=== PATIENT | female | born 2000 | race Caucasian/White ===

== ENCOUNTER 2021-03-17 15:30 | Outpatient (CLI) | payer SELFPAY ==
[~2021-03-17] VITALS: Ht 154.9 cm; Wt 68.1 kg
[2021-03-17 16:08] VITALS: BP 130/81
[2021-03-17] MEDS ORDERED: FAMO20TA PO (16:35)
[2021-03-17] MEDS ORDERED: PRENTAB9 PO (16:35)
[2021-03-17 17:25] VITALS: BP 131/79
--- NOTE | 2021-03-17 20:02 | IPNPDOC ---
Text Note Date of Service The patient was seen on 03/17/21. NOTE 03/17/21 patient 19 yo LMP 06/06/20 EDC BY EARLY US 16.2 WEEKS EDC 03/13/21 AT 40.4 WEEKS COMPLAINT OF SROM CALLED AT O900 AM CAME FOR ASSESSMENT AT 1700 HOURS NO PAD NO EVIDENCE FLUID. RISK FACTORS LATE ENTRY FOR CARE NO EARLY DATING US PAST HISTORY 08/26/2018 37 WEEKS 4 DAYS FEMALE 7 LBS 2 OZ. EXAMINATION NO ACUTE DISTRESS CATEGORY 1 STRIP NO CONTRACTIONS MODERATE VARIABILITY BASELINE NORMAL. EXAMINATION VULVA DRY STERILE SPECULUM EXAMINATION VAGINA MUCORRHEA MODERATE SLIGHT BLOOD TINGED FROM MEMBRANE STRIPPING SLIDE MICROSCOPIC NEGATIVE YEAST NEGATIVE BV, NEGATIVE TRICHOMONAS . HAS LATERAL WALL COLLAPSE BILATERAL .VERTEX -3 STATION POSTERIOR SOFT CERVIX 2 CM TIGHT BULGING MEMBRANES ABOVE CERVIX. PLAN PATIENT BOOKED IOL 03/19/21 OFFERED TO IOL TONIGHT. PATIENT PREFERRED TO WAIT REVIEWED PRECAUTIONS IF SROM, IF BLEEDING IF SARAH Q4-6 MINUTES RETURN FOR TRIAGE EXPRESSED UNDERSTANDING PATIENT DISCHARGED UNDELIVERED . ORDERED COVID TESTING TODAY. VS,Fishbone, I+O VS, Fishbone, I+O Vital Signs Date Time Temp Pulse Resp B/P (MAP) Pulse Ox O2 Delivery O2 Flow Rate FiO2 03/17/21 17:25 103 16 131/79 (96) 03/17/21 16:08 97.6 Dipesh Inman MD Mar 17, 2021 20:00
== END 2021-03-17 19:04 | disposition home or self-care (01) ==
LOC: M LDO 15:30
PROVIDERS: ATTEND Obstetrics & Gynecology
DX: O26.853 Spotting complicating pregnancy, third trimester (principal); Z3A.40 40 weeks gestation of pregnancy
CPT/HCPCS: 59025; G0378; G0463; U0002

== ENCOUNTER 2021-03-18 15:36 | Inpatient (IN) | payer OTHER ==
[~2021-03-18] VITALS: Ht 154.9 cm; Wt 65.0 kg
[2021-03-18] VITALS (34 sets, daily range): BP systolic 101–152; BP diastolic 53–106
[2021-03-18] MEDS: IBUPROFEN 800 MG TAB PO SCH ×2 (00:20→08:20)
[~2021-03-18 15:36] MED LIST: FAMO20TA PO; PRENTAB9 PO
[2021-03-18] MEDS ORDERED: LACTATED RINGER'S 1000 ML IV STA (16:41)
[2021-03-18] MEDS ORDERED: OXYTOCIN DRIP 30 UNITS in IV 1 EA IV PRN (16:45)
[2021-03-18] MEDS ORDERED: LIDOCAINE 1% MDV 20ML VIAL INFIL PRN (16:45)
[2021-03-18] MEDS ORDERED: LR 1,000 ML IV SCH (16:45)
[2021-03-18 17:19] LABS: APPEARANCE, URINE HAZY (CLEAR); BACTERIA, URINE AUTO NEGATIVE (NEGATIVE); BILIRUBIN, URINE AUTO NEGATIVE (NEGATIVE); BLOOD, URINE BLOOD 1+ (NEGATIVE); COLOR, URINE YELLOW (YELLOW); GLUCOSE, URINE (UA) AUTO NEGATIVE (NEGATIVE); HEMATOCRIT 38.5 % (36.0-47.0); HEMOGLOBIN 12.9 g/dl (12.0-15.5); KETONE, URINE AUTO NEGATIVE (NEGATIVE); LEUKOCYTE ESTERASE, URINE AUTO 1+ (NEGATIVE); MEAN CORPUSCULAR HEMOGLOBIN 29.3 pg (27.0-33.0); MEAN CORPUSCULAR HGB CONC 33.5 g/dl (32.0-36.5); MEAN CORPUSCULAR VOLUME 87.5 fl (80.0-96.0); MUCUS, URINE SMALL (NEGATIVE); NITRITE, URINE AUTO NEGATIVE (NEGATIVE); PLATELET COUNT, AUTOMATED 281 10^3/uL (150-450); PROTEIN, URINE AUTO NEGATIVE (NEGATIVE); RBC, URINE AUTO 3 /HPF (0-3); SPECIFIC GRAVITY URINE AUTO 1.014 (1.002-1.035); SQUAMOUS EPITHELIAL CELL UR AU 8 /HPF (0-6); UROBILINOGEN, URINE AUTO 0.2 mg/dL (0.0-2.0); WBC, URINE AUTO 5 /HPF (0-3); WHITE BLOOD COUNT 15.4 10^3/uL (4.0-10.0)
[2021-03-18] MEDS ORDERED: FENTANYL 2MCG/ML ROPIVACAINE 0.2% IN 0.9% NACL 100ML IVBAG As Ordered ONE (17:38)
[2021-03-18 17:47] LABS: CREATININE,RANDOM URINE 87.3 MG/DL; TOTAL PROTEIN,RANDOM URINE 19.1 MG/DL (0.0-12.0)
[2021-03-18 17:48] LABS: ALT/SGPT 18 U/L (12-78); BILIRUBIN,TOTAL 0.5 MG/DL (0.2-1.0); CREATININE FOR GFR 0.47 MG/DL (0.55-1.30); GLOMERULAR FILTRATION RATE > 60.0 (>60); LDH LACTATE DEHYDROGENASE 325 U/L (84-246); URIC ACID 3.9 MG/DL (2.6-6.0)
[2021-03-18] MEDS ORDERED: ePHEDrine SULFATE 25 MG/5 ML(5MG/ML) SYRINGE As Ordered ONE (19:08)
[2021-03-18] MEDS ORDERED: EPIDURAL COMMENT XX SCH (19:50)
[2021-03-18] MEDS ORDERED: NALOXONE INJ 0.4MG/1ML VIAL (J2310 PER 1MG) IV PRN (19:50)
[2021-03-18] MEDS ORDERED: diphenhydrAMINE 50MG/ML VIAL (J1200) IV PRN (19:50)
[2021-03-18] MEDS ORDERED: REFRIGERATOR IV KEYS XX PRN (19:50)
[2021-03-18] MEDS ORDERED: LACTATED RINGER'S 1000 ML IV PRN (19:50)
[2021-03-18] MEDS ORDERED: FENTANYL/ROPIVACAINE/NACL BAG 100 ML EPIDURAL SCH (19:50)
[2021-03-18] MEDS ORDERED: ONDANSETRON 4MG/2ML VIAL IV PRN (19:50)
[2021-03-18] MEDS ORDERED: ePHEDrine SULFATE 25 MG/5 ML(5MG/ML) SYRINGE IV PRN (19:50)
[2021-03-18] MEDS ORDERED: EPIDURAL/PCA KEYS XX PRN (19:50)
[2021-03-19] VITALS (11 sets, daily range): BP systolic 108–204; BP diastolic 55–106
[2021-03-19 00:18] LABS: CORD GAS ABE V -1.7; CORD GAS HCO3 V 22.1 MEQ/L; CORD GAS O2 SAT V 77.8 %; CORD GAS PCO2 V 35.9 mmHg; CORD GAS PH V 7.408 UNITS; CORD GAS PO2 V 35.1 mmHg; CORD GAS SBC V 22.4 MEQ/L; CORD GAS TCO2 V 23.2 MEQ/L
[2021-03-19] MEDS ORDERED: METHYLERGONOVINE MALEATE 0.2 MG TAB PO PRN (00:20)
[2021-03-19] MEDS ORDERED: ONDANSETRON 4MG/2ML VIAL IV PRN (00:20)
[2021-03-19] MEDS ORDERED: DIBUCAINE 1% OINTMENT 30GM TOP PRN (00:20)
[2021-03-19] MEDS ORDERED: MEASLES,MUMPS,RUBELLA VACCINE INJ (MMR-II) (90707) SC SCH (00:20)
[2021-03-19] MEDS ORDERED: PROMETHAZINE 25 MG TAB PO PRN (00:20)
[2021-03-19] MEDS ORDERED: LR 1,000 ML IV SCH (00:20)
[2021-03-19] MEDS ORDERED: OXYTOCIN DRIP 30 UNITS in IV 1 EA IV SCH ×4 (00:20)
[2021-03-19] MEDS ORDERED: RHOGAM 300 MCG (1500 IU) INJ (J2790) IM SCH (00:20)
[2021-03-19 00:21] LABS: CORD GAS HCO3 A 23.8 MEQ/L; CORD GAS O2 SAT A 42.6 %; CORD GAS PCO2 A 69.3 mmHg; CORD GAS PH A 7.153 UNITS; CORD GAS PO2 A 24.4 mmHg; CORD GAS SBC A 17.5 MEQ/L; CORD GAS TCO2 A 25.9 MEQ/L
[2021-03-19] MEDS: ACETAMINOPHEN 500 MG TAB PO SCH ×4 (00:51→19:40)
[2021-03-19] MEDS: PRENATAL VITAMINS CHEWABLE TABLET PO SCH (12:41)
[2021-03-19] MEDS: IBUPROFEN 800 MG TAB PO SCH (16:18)
[2021-03-20] MEDS: IBUPROFEN 800 MG TAB PO SCH ×3 (00:09→16:55)
[2021-03-20] MEDS: ACETAMINOPHEN 500 MG TAB PO SCH ×4 (00:10→18:07)
[2021-03-20 05:23] VITALS: BP 128/89
[2021-03-20] MEDS: PRENATAL VITAMINS CHEWABLE TABLET PO SCH (07:52)
[2021-03-20 08:13] LABS: HEMATOCRIT 34.9 % (36.0-47.0); HEMOGLOBIN 11.4 g/dl (12.0-15.5); MEAN CORPUSCULAR HEMOGLOBIN 29.5 pg (27.0-33.0); MEAN CORPUSCULAR HGB CONC 32.7 g/dl (32.0-36.5); MEAN CORPUSCULAR VOLUME 90.4 fl (80.0-96.0); PLATELET COUNT, AUTOMATED 232 10^3/uL (150-450); RED BLOOD COUNT 3.86 10^6/uL (4.00-5.40); WHITE BLOOD COUNT 12.8 10^3/uL (4.0-10.0)
[2021-03-20 18:00] VITALS: BP 140/82
[2021-03-21] MEDS: ACETAMINOPHEN 500 MG TAB PO SCH ×2 (00:20→05:08)
[2021-03-21 06:00] VITALS: BP 145/86
[2021-03-21] MEDS ORDERED: ACET-683 PO (08:12)
[2021-03-21] MEDS ORDERED: IBUP80TA PO (08:12)
[2021-03-21] MEDS: IBUPROFEN 800 MG TAB PO SCH ×2 (08:34)
[2021-03-21] MEDS: PRENATAL VITAMINS CHEWABLE TABLET PO SCH (08:34)
== END 2021-03-21 12:23 | disposition home or self-care (01) | DRG 807 ==
LOC: M LDO 15:36 → M LDI 16:30 → M OBS 03-19 03:45
PROVIDERS: ADMIT Registered Nurse; ATTEND Obstetrics & Gynecology
PROC: 10E0XZZ Delivery of Products of Conception, External Approach (ICD-10-PCS; principal; 2021-03-19)
DX: O48.0 Post-term pregnancy (principal); Z37.0 Single live birth; Z3A.40 40 weeks gestation of pregnancy